=== PATIENT | female | born 1975 | race Caucasian/White ===

== ENCOUNTER → 2019-09-24 17:34 | Outpatient (CLI) | payer BC, SELFPAY ==
--- NOTE | ~2019-09-24 | MM_ITS ---
EXAMINATION: [place] [facility] [place] HISTORY: Screening mammogram TECHNIQUE: Craniocaudal and mediolateral oblique 3-D tomosynthesis images were obtained and synthetic 2-D images were generated. CAD analysis was submitted and interpreted. COMPARISON: 06/14/2015 BREAST PARENCHYMAL COMPOSITION: FINDINGS: There are benign bilateral skin calcifications. The right breast is stable without evidence for malignancy. There is a developing mass in the upper outer quadrant of the left breast measuring approximately 7 mm maximum dimension. IMPRESSION: 1. Developing mass upper outer quadrant of the left breast measuring approximately 7 mm. 2. Additional mammographic views and possible breast ultrasound are recommended. BI-RADS Category 0: Incomplete: Needs additional imaging evaluation. Reviewed, dictated and finalized at location A. IMPRESSION: 1. Developing mass upper outer quadrant of the left breast measuring approximat pedro 7 mm. 2. Additional mammographic views and possible breast ultrasound are recommended . BI-RADS Category 0: Incomplete: Needs additional imaging evaluation.
== END ==
PROVIDERS: Visit Provider Obstetrics & Gynecology
DX: Z12.31 Encounter for screening mammogram for malignant neoplasm of breast (principal); R92.8 Other abnormal and inconclusive findings on diagnostic imaging of breast
CPT/HCPCS: 77063; 77067

== ENCOUNTER 2019-10-11 07:43 | Outpatient (CLI) | payer BC, SELFPAY ==
--- NOTE | ~2019-10-11 | MMUS_ITS ---
EXAMINATION: MM diagnostic mammo unilat LT, US breast LT limited HISTORY: Left breast mass on screening mammogram TECHNIQUE: Additional 3-D tomosynthesis images of the left breast were performed and synthetic 2-D im ages were generated. CAD analysis was submitted and interpreted. High resolution limited left breast ultrasound was performed. COMPARISON: 09/24/2019, 06/14/2015 FINDINGS: MAMMOGRAPHIC FINDINGS: There is a 7 mm oval, obscured, equal density mass in the middle third of the breast at the 2:00 loca tion 2.5 cm from the nipple. No suspicious calcification or architectural distortion are present. ULTRASOUND: There is an 8 mm x 5 mm cyst at the 2:00 location 1 cm from the nipple corresponding to the mammograp hic finding in question. There is a 4 mm round, circumscribed, hypoechoic mass with no internal enhan cement and subtle posterior acoustic enhancement at the 12:00 location 0.5 cm from the nipple. A 3 mm mass with similar sonographic features is seen at the 3:00 location 3 cm from the nipple. IMPRESSION: 1. Left breast cyst corresponding to the finding in question on recent screening mammogram. Incidenta l small left breast masses seen on ultrasound are probably benign. 2. Recommend 6 month follow-up left diagnostic mammogram and ultrasound. BI-RADS category 3, probably benign findings. Reviewed, dictated and finalized at location A. IMPRESSION: 1. Left breast cyst corresponding to the finding in question on recent screenin g mammogram. Incidental small left breast masses seen on ultrasound are probabl y benign. 2. Recommend 6 month follow-up left diagnostic mammogram and ultrasound. BI-RADS category 3, probably benign findings.
== END 2019-10-11 07:44 ==
LOC: MICIMG 07:44
PROVIDERS: Visit Provider Obstetrics & Gynecology
DX: R92.8 Other abnormal and inconclusive findings on diagnostic imaging of breast (principal)
CPT/HCPCS: 76642; 77065

== ENCOUNTER → 2020-04-12 07:59 | Outpatient (CLI) | payer BC, SELFPAY ==
--- NOTE | ~2020-04-12 | MMUS_ITS ---
EXAMINATION: MM diagnostic nicholas LT w damaris, US breast LT limited HISTORY: Six-month follow-up for probably benign left breast masses TECHNIQUE: Craniocaudal, mediolateral, and mediolateral oblique 3-D tomosynthesis images of the left breast were performed and synthetic 2-D images were generated. CAD analysis was submitted and interpr eted. High resolution limited left breast ultrasound was performed. COMPARISON: 09/14/2019, 09/24/2019, 06/14/2015 BREAST PARENCHYMAL COMPOSITION: The breasts are heterogeneously dense, which may obscure small masses . FINDINGS: MAMMOGRAPHIC FINDINGS: Scattered benign-appearing calcifications are present. No suspicious mass or architectural distortion are identified. There has been no suspicious interval change. ULTRASOUND: There is a 4 mm x 2 mm oval, circumscribed, parallel, hypoechoic mass with no posterior features or i nternal vascularity at the 12:00 location near the nipple which is not significantly changed. A 4 mm x 3 mm mass with similar sonographic features at the 3:00 location 3 cm from the nipple is also not s ignificantly changed. A 7 mm cyst at the 2:00 1:00 location near the nipple is slightly decreased in size. IMPRESSION: 1. Probably benign left breast masses. 2. Recommend 6 month follow-up left diagnostic mammogram and ultrasound. BI-RADS category 3, probably benign findings. Reviewed, dictated and finalized at location A. IMPRESSION: 1. Probably benign left breast masses. 2. Recommend 6 month follow-up left diagnostic mammogram and ultrasound. BI-RADS category 3, probably benign findings.
== END ==
PROVIDERS: Referring Provider Obstetrics & Gynecology; Visit Provider Obstetrics & Gynecology Gynecology
DX: R92.8 Other abnormal and inconclusive findings on diagnostic imaging of breast (principal)
CPT/HCPCS: 76642; 77061; 77065; G0279

== ENCOUNTER 2020-04-28 09:49 | Outpatient (CLI) | payer BC, SELFPAY ==
--- NOTE | 2020-04-28 09:59 | EST_ITS ---
Patient Info Name: Tanisha Ag Age: 44 years : 1975 Gender: Female Ht: 64 in Wt: 135 lbs BSA: 1.67 m2 Exam Date: 04/28/2020 10:18 AM Exam Location: [facility] Patient Status: Outpatient Admit Date: 04/28/2020 Staff Ordering Physician: Monique Gu MD Deicer Repairer Electric: Ken Urena RDCS, RT Attending Provider: JARAD MARTINEZ DO Referring Physician: Brittanie DENTON; Exercise Technologist: Holly Delgado RDCS Exercise Physician: Jarad Martinez DO Exam Type: CA stress echo Study Info Indications R07.9 - Chest pain, unspecified Treadmill exercise stress echocardiogram is performed. Summary 1. 1. Abnormal Daniel exercise stress test for ischemic ST changes by ECG criteria. 2. 2. Reduced functional capacity, achieving 7 METs of workload, but this is due to early termination related to significant ST depressions. 3. 3. Appropriate HR response to exercise. 4. 4. Appropriate HR recovery at 1 minute post exercise. 5. 5. Abnormal stress echocardiogram for ischemia by wall motion analysis suggesting coronary stenosis in LAD distribution. 6. 6. Patient informed about the above results. 7. 7. Adalid Martinez NP, informed of the above results in Dr. Monique Gu's absence. Stress Echo Findings Left Ventricle In apical views, apex is akinetic. In parasternal short axis view, anterior wall is hypokinetic. Other wall segments appear to demonstrate normal thickening with systole. Left Ventricle Normal LV systolic function, no wall motion abnormality. Protocol: Daniel Stress ECG Details Stage: REST Duration (min): 1 min : 46 sec Speed (mph): 0.0 Grade (%): 0 HR (bpm): 69 SBP (mmHg): 135 DBP (mmHg): 69 METS: --- Stage: REST Duration (min): 15 min : 16 sec Speed (mph): 0.0 Grade (%): 0 HR (bpm): 101 SBP (mmHg): 135 DBP (mmHg): 69 METS: --- Stage: STAGE 1 Duration (min): 1 min : 0 sec Speed (mph): 1.7 Grade (%): 10 HR (bpm): 107 SBP (mmHg): 135 DBP (mmHg): 69 METS: --- Stage: STAGE 1 Duration (min): 2 min : 0 sec Speed (mph): 1.7 Grade (%): 10 HR (bpm): 127 SBP (mmHg): 135 DBP (mmHg): 69 METS: --- Stage: STAGE 1 Duration (min): 3 min : 0 sec Speed (mph): 1.7 Grade (%): 10 HR (bpm): 126 SBP (mmHg): 135 DBP (mmHg): 73 METS: --- Stage: STAGE 2 Duration (min): 1 min : 0 sec Speed (mph): 2.5 Grade (%): 12 HR (bpm): 139 SBP (mmHg): 135 DBP (mmHg): 73 METS: --- Stage: STAGE 2 Duration (min): 2 min : 0 sec Speed (mph): 2.5 Grade (%): 12 HR (bpm): 154 SBP (mmHg): 137 DBP (mmHg): 77 METS: --- Stage: STAGE 2 Duration (min): 3 min : 0 sec Speed (mph): 2.5 Grade (%): 12 HR (bpm): 164 SBP (mmHg): 137 DBP (mmHg): 77 METS: --- Stage: STAGE 3 Duration (min): 1 min : 0 sec Speed (mph): 0.0 Grade (%): 0 HR (bpm): 124 SBP (mmHg): 125 DBP (mmHg): 76 METS: --- Stage: STAGE 3 Duration (min): 2 min :
== END 2020-04-28 09:50 | disposition home or self-care (01) ==
PROVIDERS: PCP Family Medicine; Visit Provider Family Medicine
DX: R07.89 Other chest pain (principal)
CPT/HCPCS: 93351

== ENCOUNTER 2020-05-10 01:45 | Outpatient (CLI) | payer BC, SELFPAY ==
[2020-05-10 18:18] LABS: SARS-CoV-2 RNA PCR Negative
== END 2020-05-10 01:46 | disposition home or self-care (01) ==
LOC: ANHCOVIDDT 01:45
PROVIDERS: PCP Family Medicine; Visit Provider Specialist
DX: Z01.812 Encounter for preprocedural laboratory examination (principal); Z20.828 Contact with and (suspected) exposure to other viral communicable diseases
CPT/HCPCS: 87635; C9803; U0003

== ENCOUNTER 2020-05-30 03:02 | Outpatient (CLI) | payer BC, SELFPAY ==
[2020-05-30 19:46] LABS: SARS-CoV-2 RNA PCR Negative
== END 2020-05-30 03:03 | disposition home or self-care (01) ==
LOC: ANHCOVIDDT 03:03
PROVIDERS: PCP Family Medicine; Visit Provider Specialist
DX: Z20.828 Contact with and (suspected) exposure to other viral communicable diseases (principal)
CPT/HCPCS: 87635; C9803; U0003

== ENCOUNTER 2020-06-02 04:36 | Day surgery (SDC) | payer BC, SELFPAY ==
[2020-05-11 16:12] VITALS: BMI 22.3
[2020-06-01 12:50] VITALS: BMI 22.3
[2020-06-02] VITALS (9 sets, daily range): BP systolic 106–123; BP diastolic 63–78; PULSE 67–86; RESP 14–17; TEMP 36.8–37.5; O2SAT 97–100; BMI 22.4
--- NOTE | 2020-06-02 08:40 | SUR.PREOP ---
ARRIVES AMBULATORY TO [facility] FOR SCHEDULED LHC W/ DR. CATHERINE. STEADY GAIT, A&OX4, DENIES PAIN OR SOB. ORIENTED TO ROOM, PLAN OF CARE, PROCEDURE. QUESTIONS ANSWERED. IV STARTED, LABS SENT, VS OBTAINED, SKIN PREP COMPLETED, PULSES MARKED, CONSENT SIGNED. WILL CONTINUE TO MONITOR.
[2020-06-02 09:07] LABS: Basophils Percent Auto 0.7 % (0.2-1.2); Eosinophils Absolute Auto 0.1 K/mm3 (0-0.3); Eosinophils Percent Auto 1.7 % (0-4.4); Hematocrit 39.8 % (37.0-47.0); Immature Granulocyte Absolute 0.02 K/mm3 (0.00-0.031); Immature Granulocyte Percent A 0.3 % (0-0.5); Lymphocytes Absolute Auto 1.59 K/mm3 (0.9-3.2); Lymphocytes Percent Auto 27.7 % (18.3-44.2); Mean Corpuscular HGB Conc 35.2 g/dl (32-36); Mean Corpuscular Hemoglobin 32.1 pg (26-34); Mean Corpuscular Volume 91.3 fl (80-100); Mean Platelet Volume 9.3 fl (7.4-10.4); Monocytes Absolute Auto 0.4 K/mm3 (0.1-0.6); Monocytes Percent Auto 6.6 % (2.6-8.5); Neutrophils Absolute Auto 3.6 K/mm3 (1.3-6.7); Platelet Count Result 259 k/mm3 (150-375); Red Blood Count 4.36 M/mm3 (4.2-5.4); Red Cell Distribution Width 11.2 % (11.5-14.5); White Blood Count 5.8 K/mm3 (4.5-10.0)
[2020-06-02 09:16] LABS: INR 0.9; Prothrombin Time 12.6 Seconds (11.1-14.7)
[2020-06-02 09:20] LABS: Anion Gap 7 mmol/L (8-16); Blood Urea Nitrogen 9 mg/dL (7-17); Calcium 9.4 mg/dL (8.4-10.2); Carbon Dioxide 30 mmol/L (22-30); Chloride 102 mmol/L (98-107); Estimated CRCL calculation 90 ml/min; Estimated Glomerular Filt Rate > 60; Glucose 96 mg/dL (65-105); Potassium 3.7 mmol/L (3.4-5.0); Sodium 139 mmol/L (137-145)
--- NOTE | 2020-06-02 11:01 | WPDMODSED ---
Moderate Sedation Note-Pt Data Patient Data Diagnosis: Intermittent chest pain abnormal stress echocardiogram Present Complaint: this is a hypertensive 44-year-old woman who presented to her physician with intermittent episodes of chest pain. A stress echocardiogram was reported to be significantly abnormal with ST depression and apical wall motion abnormalities. As a result of this angiography has been recommended. Procedure to be performed/Plan: Left heart catheterization Allergies Allergy/AdvReac Type Severity Reaction Status Date / Time bupropion [From Wellbutrin] Allergy Severe Hives Verified 06/02/20 09:08 Penicillins Allergy Severe Hives Verified 06/02/20 09:08 Cephalosporins Allergy Intermediate Blister Verified 06/02/20 09:08 Home Medications Medication Instructions Recorded Confirmed Type aspirin 81 mg chewable tablet 81 mg PO DAILY #30 tablet 04/12/20 06/01/20 Rx cholecalciferol (vitamin D3) 50 50 mcg PO DAILY 05/01/20 06/01/20 History mcg (2,000 unit) capsule magnesium oxide 400 mg PO DAILY 05/01/20 05/25/20 History pravastatin 10 mg tablet 10 mg PO DAILY #30 tablet 05/01/20 06/01/20 Rx vit B complex 100 combo no.2 100 1 tablet PO DAILY 05/01/20 06/01/20 History mg tablet,extended release buspirone 5 mg PO TID 06/01/20 06/02/20 History Current Medications: Active Medications Sodium Chloride (Normal Saline Iv) 500 mls @ 100 mls/hr IV CONT .Q5H DIAMOND Sedation/Anesthesia: No previous sedation/anesthesia problems (including family history). [facility] Past Medical History Medical History (Updated 05/01/20 @ 10:48 by Claudio Meadows DO) Carpal tunnel syndrome on both sides Dyskinesia of esophagus Nasal polyps Nicotine dependence, unspecified, in remission Palpitations 2005: holter neg/ echo normal Surgical History Surgical History Hx of tubal ligation S/P appendectomy (~2003) Family History Family History Mother Hypertension Father Family history of cardiovascular disease Family history of malignant neoplasm of skin Other Family history of skin conditions Social History Social History Tobacco type: cigarettes Second hand tobacco smoke exposure: No Smoking end date: 07/14/01 Substance use: never Living arrangements: with family Gender identity (if verbalized by the patient): Female Sexual Orientation (if Verbalized by the Patient): Straight or Heterosexual Spiritual care concerns: No Mod Sed Physical Exam Physical Exam Pre Procedural Exam: Normal: Appearance, Nose, Neck, Throat, Airway, Lungs, Heart Size, Heart Rate, Heart Rhythm, Neuro Exam and Extremities Hours since solid foods: 12 Hours since liquid intake: 12 Internal Medicine - PN: Obj Da Vital Signs Vital Signs: Vital Signs - 24 hr 06/02/20 08:55 Temperature 37.5 C Pulse Rate 86 Respiratory Rate 14 Blood Pressure 123/73 Pulse Oximetry 100 Meds/Results Medications: Active Medications Generic Name Dose Route Start Last Admin Trade Name Freq PRN Reason Stop Dose Admin Sodium Chloride 500 mls @ 100 mls/hr 06/02/20 06:20 Normal Saline Iv IV CONT .Q5H DIAMOND Labs CBC & Chem 7: 06/02/20 08:55 06/02/20 08:55 Labs: Laboratory Results - last 24 hr 06/02/20 06/02/20 06/02/20 08:55 08:55 08:55 WBC 5.8 RBC 4.36 Hgb 14.0 Hct 39.8 MCV 91.3 MCH 32.1 MCHC 35.2 RDW 11.2 L Plt Count 259 MPV 9.3 Immature Gran % (Auto) 0.3 Neut % (Auto) 63.0 Lymph % (Auto) 27.7 Gem % (Auto) 6.6 Eos % (Auto) 1.7 Baso % (Auto) 0.7 Lymph # (Auto) 1.59 Gem # (Auto) 0.4 Eos # (Auto) 0.1 Baso # (Auto) 0.0 Abs Immat Gran (auto) 0.02 Absolute Neuts (auto) 3.6 Absolute Nucleated RBC 0.0 Nucleated RBC % 0.0 PT 12.6 INR 0.9 Sodium 1
--- NOTE | 2020-06-02 11:36 | P.PCNCC_ITS ---
Cardiac Cath Procedure Note Date of procedure:: 06/02/20 Performing physician:: Keith Luciano MD Indication:: intermittent chest pain abnormal stress test Brief clinical history:: this is 44-year-old woman with intermittent chest pain that is somewhat atypical of angina. A stress test that was on as an outpatient however was significantly abnormal leading to the recommendation for an angiogram Procedure Procedure performed:: left heart catheterization with left ventriculography and coronary angiography Angio-Seal to right femoral artery Sedation/Medication given:: fentanyl 50 mg Versed 2 mg case start time 11:18 a.m. case end time 11:33 a.m. sedation provided by Aidan Ball RN , trained observer Access site:: right femoral artery Estimated blood loss:: 10-15 cc Procedure note:: patient was brought to the cardiac catheterization lab in postabsorptive state the right femoral triangle was prepared in the usual f ashion. Anesthesia was provided with 1% lidocaine infiltrated locally. Using the modified Seldinger technique the right femoral artery was punctured and a 5 Marshallese vascular sheath was introduced. Following this I used a 5 Marshallese angled pigtail catheter to document left-sided hemodynamics and inject the g ORTEGA projection. Pigtail catheter was then withdrawn and a 5 Marshallese FL4 catheter was used to engage inject the left coronary artery. The 5 Marshallese JR4 catheter was used to engage inject the right coronary artery. Following procedure the cineangiograms were reviewed and the case was terminated and angiogram was done of the femoral artery through the sheath and a 6 Marshallese Angio-Seal device was deployed for hemostasis with a good result. 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 Findings:: Hemodynamics: Central aortic pressure is 108/56 left ventricle 108 over 0 end-diastolic 8 there is no systolic gradient 5 pullback across the aortic valve. Left ventricle: The LV is of normal size all segments contract vigorously the global ejection fraction appears to be 65% by visual estimation without any wall motion abnormalities. The left main coronary artery is a long medium in caliber nicely patent the LAD is a medium caliber artery proximally and becomes very small down by the apex the LAD is angiographically free of disease the circumflex is very small artery leading to 2 small marginal branches. Despite being small in size it is angiographically normal right coronary artery is medium in size and is dominant to the posterior circulation the right coronary artery is angiographically normal. Conclusion:: 1. Right coronary dominant circulation with no angiographic evidence of coronary disease 2. angiographically small caliber vessels in this lady 3. normal left ventricular systolic function without wall motion abnormalities 4. successful Angio-Seal deployment at the end case with no evidence of hematoma Keith Luciano MD [facility]
[2020-06-02] MEDS: ONDANSETRON INJ 4 MG/2 ML VIAL IV PUSH (12:46)
== END 2020-06-02 15:20 | disposition home or self-care (01) ==
PROVIDERS: PCP Family Medicine; Visit Provider Specialist
PROC: 4A023N7 Measurement of Cardiac Sampling and Pressure, Left Heart, Percutaneous Approach (ICD-10-PCS; CPT 93452; principal; 2020-06-02 10:00)
DX: R94.39 Abnormal result of other cardiovascular function study (principal); R07.89 Other chest pain; Z79.82 Long term (current) use of aspirin; Z87.891 Personal history of nicotine dependence
CPT/HCPCS: 36415; 80048; 85025; 85610; 93458; C1760; C1887; C1894; G0269; J1644; J2250; J2405; J3010; J7040

== ENCOUNTER 2020-09-21 08:18 | Outpatient (CLI) | payer BC, SELFPAY | END 2020-09-21 08:19 | disposition home or self-care (01) | LOC: ANHCOVIDVC 08:18 | PROVIDERS: PCP Family Medicine | DX: Z23 Encounter for immunization (principal) | CPT/HCPCS: 0001A; 91300 ==

== ENCOUNTER → 2020-10-10 07:49 | Outpatient (CLI) | payer BC, SELFPAY ==
--- NOTE | ~2020-10-10 | MMUS_ITS ---
EXAMINATION: MM diagnostic nicholas BI w damaris, US breast LT limited HISTORY: Six-month follow-up for probably benign left breast mass TECHNIQUE: Craniocaudal, mediolateral, and mediolateral oblique 3-D tomosynthesis images of the meir ts were performed and synthetic 2-D images were generated. CAD analysis was submitted and interpreted . High resolution limited left breast ultrasound was performed. COMPARISON: 04/12/2020, 10/11/2019, 09/24/2019, 06/14/2015 BREAST PARENCHYMAL COMPOSITION: There are scattered areas of fibroglandular density. FINDINGS: MAMMOGRAPHIC FINDINGS: Scattered benign-appearing calcifications are present. There is no evidence of suspicious mass, calci fication, or architectural distortion in either breast to suggest malignancy. There has been no susp icious interval change. ULTRASOUND: There is a stable 4 mm x 2 mm oval, circumscribed, parallel, hypoechoic mass with no posterior featur es or internal vascularity at the 3:00 location 3 cm from the nipple. The previously described 4 mm m ass at the 12:00 location near the nipple has decreased in size. There is a 6 mm cyst at the 1:00 loc ation near the nipple. IMPRESSION: 1. Stable, probably benign left breast mass at the 3:00 location. 2. Given one year of interval stability, recommend 12 month followup left diagnostic mammogram and ul trasound are recommended. Patient will also be due for evaluation of the right breast at that time. BI-RADS category 3, probably benign findings. Reviewed, dictated and finalized at location A. IMPRESSION: 1. Stable, probably benign left breast mass at the 3:00 location. 2. Given one year of interval stability, recommend 12 month followup left diagn ostic mammogram and ultrasound are recommended. Patient will also be due for ev aluation of the right breast at that time. BI-RADS category 3, probably benign findings.
== END ==
PROVIDERS: PCP Family Medicine; Visit Provider Obstetrics & Gynecology Gynecology
DX: N63.25 Unspecified lump in the left breast, overlapping quadrants (principal); N60.02 Solitary cyst of left breast
CPT/HCPCS: 76642; 77062; 77066; G0279

== ENCOUNTER 2020-10-12 08:13 | Outpatient (CLI) | payer BC, SELFPAY | END 2020-10-12 08:14 | disposition home or self-care (01) | LOC: ANHCOVIDVC 08:13 | PROVIDERS: PCP Family Medicine | DX: Z23 Encounter for immunization (principal) | CPT/HCPCS: 0002A; 91300 ==

== ENCOUNTER 2021-03-22 07:36 | Outpatient (CLI) | payer BC, SELFPAY ==
--- NOTE | ~2021-03-22 | MR_ITS ---
EXAMINATION: MR cervical spine wo/w con DATE: 03/22/2021 09:13 INDICATION: Other disturbances of skin sensation. TECHNIQUE: Magnetic resonance imaging (MRI) of the cervical spine was performed without and with 12 m L MultiHance intravenous contrast. Sequences included sagittal and axial T2-weighted FSE, sagittal T2 -weighted FS FSE, and sagittal and axial T1-weighted FSE. Postcontrast sequences included sagittal an d axial T1-weighted FS FSE. COMPARISON: None FINDINGS: Bone alignment is normal. Vertebral body heights are normal. Intervertebral disc heights ar e normal. The spinal cord signal intensity is normal. The following disc levels are specifically disc ussed: C2-C3: The disc does not extend beyond the endplate margin. There is no uncovertebral joint osteoarth ritis. There is no facet joint osteoarthritis. There is no neural foraminal stenosis. There is no sydney tral canal stenosis. C3-C4: The disc does not extend beyond the endplate margin. There is no uncovertebral joint osteoarth ritis. There is no facet joint osteoarthritis. There is no neural foraminal stenosis. There is no sydney tral canal stenosis. C4-C5: The disc does not extend beyond the endplate margin. There is no uncovertebral joint osteoarth ritis. There is no facet joint osteoarthritis. There is no neural foraminal stenosis. There is no sydney tral canal stenosis. C5-C6: There is a central protrusion with annular fissure. There is no uncovertebral joint osteoarthr itis. There is no facet joint osteoarthritis. There is no neural foraminal stenosis. There is mild ce ntral canal stenosis. C6-C7: There is a central protrusion. There is no uncovertebral joint osteoarthritis. There is no fac et joint osteoarthritis. There is no neural foraminal stenosis. There is mild central canal stenosis. C7-T1: The disc does not extend beyond the endplate margin. There is no uncovertebral joint osteoarth ritis. There is no facet joint osteoarthritis. There is no neural foraminal stenosis. There is no sydney tral canal stenosis. IMPRESSION: 1. Normal spinal cord. 2. Mild cervical spondylosis. Reviewed, dictated and finalized at location A.
--- NOTE | ~2021-03-22 | MR_ITS ---
EXAMINATION: MR brain/brain stem wo con DATE: 03/22/2021 09:04 INDICATION: Other disturbances of skin sensation. TECHNIQUE: Magnetic resonance imaging (MRI) of the brain and brainstem was performed without intraven ous contrast. Sequences included sagittal and axial T1-weighted FSE, axial diffusion-weighted FS EPI, axial T2*-weighted GRE, axial T2-weighted FLAIR Propeller, and axial T2-weighted Propeller. Apparent diffusion coefficient (ADC) maps were created. COMPARISON: None. FINDINGS: There is no intracranial hemorrhage, acute infarction, or abnormal intracranial mass lesion . The ventricles are normal in size. There are mucous retention cysts in left maxillary sinus. There is mild mucosal thickening in the paranasal sinuses. The orbits are normal. The mastoid air cells are normal. IMPRESSION: 1. Normal brain. Reviewed, dictated and finalized at location A. IMPRESSION: 1. Normal brain.
[2021-03-22 08:20] LABS: Estimated Glomerular Filt Rate > 60
== END 2021-03-22 07:37 | disposition home or self-care (01) ==
PROVIDERS: PCP Family Medicine; Visit Provider Family Medicine
DX: R20.8 Other disturbances of skin sensation (principal); R29.898 Other symptoms and signs involving the musculoskeletal system; R20.9 Unspecified disturbances of skin sensation; M47.813 Spondylosis without myelopathy or radiculopathy, cervicothoracic region; M48.03 Spinal stenosis, cervicothoracic region
CPT/HCPCS: 70551; 72156; A9577

== ENCOUNTER → 2021-08-13 07:42 | Outpatient (CLI) | payer BC, SELFPAY ==
--- NOTE | ~2021-08-13 | US_ITS ---
EXAMINATION: US abdomen limited DATE: 08/13/2021 08:32 INDICATION: Right upper quadrant pain TECHNIQUE: Multiple grayscale and Doppler ultrasound images of the abdomen were obtained. COMPARISON: 10/14/2013; CT, 04/19/2016 FINDINGS: The head and body of the pancreas are normal. The pancreatic tail is obscured by bowel gas. Cysts of the liver measure up to 2.3 cm. The liver is otherwise normal with normal echogenicity and echotexture. No surface nodularity. Normal hepatopetal flow in the main portal vein. The gallbladder is normal with no abnormal wall thickening, pericholecystic fluid or stones. The normal common bile d uct measures 3 mm. There was no sonographic Urena sign. IMPRESSION: 1. Normal sonographic study of the gallbladder. Reviewed, dictated and finalized at location B. ET SAWYER
== END ==
PROVIDERS: PCP Family Medicine; Visit Provider Family Medicine
DX: R10.11 Right upper quadrant pain (principal); K76.89 Other specified diseases of liver
CPT/HCPCS: 76705

== ENCOUNTER 2021-08-29 11:34 | Outpatient (CLI) | payer BC, SELFPAY ==
--- NOTE | ~2021-08-29 | NM_ITS ---
EXAMINATION: NM hepatobiliary wo pharm DATE: 08/29/2021 18:12 INDICATION: Right upper quadrant abdominal pain COMPARISON: None. TECHNIQUE: 4.8 mCi Tc-99m mebrofenin (Choletec) was administered intravenously. Scintigraphic images of the abdomen were obtained for one hour. At the 1 hour time point, the patient drank 8 oz Ensure, and imaging was continued for 60 minutes. Gallbladder ejection fraction was calculated by the technol ogist. FINDINGS: There is normal clearance of radiotracer from the blood pool. There is homogeneous tracer u ptake by the liver. Activity progresses to the bowel and gallbladder. The gallbladder ejection fract ion (GBEF) is 63%. Note that with this technique, normal GBEF >= 33%. IMPRESSION: 1. Normal hepatobiliary scan. Reviewed, dictated and finalized at location A. 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
== END 2021-08-29 11:35 | disposition home or self-care (01) ==
PROVIDERS: PCP Family Medicine; Visit Provider Family Medicine
DX: R10.9 Unspecified abdominal pain (principal)
CPT/HCPCS: 78226; A9537

== ENCOUNTER → 2021-10-11 07:47 | Outpatient (CLI) | payer BC, SELFPAY ==
--- NOTE | ~2021-10-11 | MMUS_ITS ---
EXAMINATION: MM diagnostic nicholas BI w damaris, US breast LT limited HISTORY: 12 month follow-up for probably benign left breast mass TECHNIQUE: Craniocaudal, mediolateral, and mediolateral oblique 3-D tomosynthesis images of the left breast were performed and synthetic 2-D images were generated. CAD analysis was submitted and interpr eted. High resolution limited left breast ultrasound was performed. COMPARISON: 10/10/2020, 04/12/2020, 10/11/2019, 09/24/2019 BREAST PARENCHYMAL COMPOSITION: There are scattered areas of fibroglandular density. FINDINGS: MAMMOGRAPHIC FINDINGS: Scattered benign-appearing calcifications are present. There is no suspicious mass, calcification, or architectural distortion in either breast to suggest malignancy. There has been no suspicious inter vida change. ULTRASOUND: There is a stable 4 mm x 2 mm oval, circumscribed, parallel, hypoechoic mass with no posterior featur es or internal vascularity at the 3:00 location 3 cm from the nipple. A cyst is noted at the 1:00 loc ation near the nipple. A 2 mm hypoechoic mass at the 12:00 location near the nipple continues to decr ease in size, consistent with a benign finding. IMPRESSION: 1. Left breast mass with two years of interval stability, consistent with a benign finding. 2. Recommend routine screening mammography in one year. BI-RADS Category 2: Benign finding(s). Reviewed, dictated and finalized at location A. IMPRESSION: 1. Left breast mass with two years of interval stability, consistent with a aryan ign finding. 2. Recommend routine screening mammography in one year. BI-RADS Category 2: Benign finding(s).
== END ==
PROVIDERS: PCP Family Medicine; Visit Provider Obstetrics & Gynecology Gynecology
DX: R92.8 Other abnormal and inconclusive findings on diagnostic imaging of breast (principal); N60.02 Solitary cyst of left breast; N63.25 Unspecified lump in the left breast, overlapping quadrants
CPT/HCPCS: 76642; 77062; 77066; G0279

== ENCOUNTER 2022-05-25 08:09 | Emergency (ER) | payer BC, SELFPAY ==
[2022-05-25] VITALS (38 sets, daily range): BP systolic 107–135; BP diastolic 62–104; PULSE 74–110; RESP 11–23; TEMP 36.3–36.8; O2SAT 97–100
--- NOTE | ~2022-05-25 | XR_ITS ---
EXAMINATION: XR ankle LT min 3V DATE: 05/25/2022 09:13 INDICATION: Post reduction TECHNIQUE: Anteroposterior, lateral, mortise, and additional oblique view of the ankle were obtained. COMPARISON: 0826 hours FINDINGS: The previously described trimalleolar fracture/dislocation has been reduced. Alignment is n ear-anatomic. The distal fibular fracture fragment remains posteriorly displaced approximately 3 mm. A posterior splint has been applied. No additional fracture is identified. IMPRESSION: 1. Reduced trimalleolar fracture/dislocation in near-anatomic alignment. Posterior splint applied. Reviewed, dictated and finalized at location A. E PAPER HAMMERMILL OPERATOR IMPRESSION: 1. Reduced trimalleolar fracture/dislocation in near-anatomic alignment. Professor Of Mechanical Engineering ior splint applied.
--- NOTE | ~2022-05-25 | XR_ITS ---
EXAMINATION: XR ankle LT min 3V DATE: 05/25/2022 09:40 INDICATION: Splint exchange TECHNIQUE: Anteroposterior, lateral, mortise, and additional oblique view of the ankle were obtained. COMPARISON: 0909 hours FINDINGS: Again seen is a trimalleolar fracture of the left ankle in near-anatomic alignment. A poste rior splint is in place. No significant change in alignment is identified. IMPRESSION: 1. Trimalleolar fracture of the left ankle in near-anatomic alignment Reviewed, dictated and finalized at location A. GRATION SOLUTION ARCHITECT
--- NOTE | ~2022-05-25 | XR_ITS ---
EXAMINATION: XR ankle LT min 3V DATE: 05/25/2022 08:29 INDICATION: Left ankle pain and deformity TECHNIQUE: Anteroposterior, lateral, mortise, and additional oblique view of the ankle were obtained. COMPARISON: None. FINDINGS: There are medial and posterior malleolar fractures. There is an oblique fracture of the dis lizette fibula extending to the level of the tibial plafond. There is posterior and lateral subluxation o f the talus relative to the distal tibia. Ankle soft tissue swelling is present. No additional fractu re is identified. IMPRESSION: 1. Trimalleolar fracture/dislocation of ankle. Reviewed, dictated and finalized at location A. ARCH TECHNOLOGIST
--- NOTE | 2022-05-25 08:32 | ED.LOWEXIN ---
HPI - Extremity Injury (Lower) General Chief Complaint: Extremity Injury, Lower Stated Complaint: L ANKLE DEFORMITY History of Present Illness HPI Narrative: Patient is a 46-year-old female who presents ER with left ankle deformity. Her cat got beneath her feet causing her to trip and fall earlier today. She suffered sudden onset pain to the left ankle. No numbness or tingling. Pulses intact. She did not lose consciousness. No areas of injury. Cannot ambulate due to pain and deformity. Related Data Home Medications Medication Instructions Recorded Confirmed cholecalciferol (vitamin D3) 50 50 mcg PO DAILY 05/01/20 01/09/22 mcg (2,000 unit) capsule magnesium oxide 400 mg PO DAILY 05/01/20 01/09/22 vit B complex 100 combo no.2 100 1 tablet PO DAILY 05/01/20 01/09/22 mg tablet,extended release (B-100 Complex ER) Allergies Allergy/AdvReac Type Severity Reaction Status Date / Time bupropion [From Wellbutrin] Allergy Severe Hives Verified 05/09/22 15:31 Penicillins Allergy Severe Hives Verified 05/09/22 15:31 Cephalosporins Allergy Intermediate Blister Verified 05/09/22 15:31 Review of Systems Review of Systems: All systems reviewed & are unremarkable except as noted in HPI and below Constitutional: Constitutional: Denies chills, Denies fatigue and Denies fever(s) Gastrointestinal: Gastrointestinal: Denies nausea and Denies vomiting Musculoskeletal: Musculoskeletal: Denies back pain, Reports arthralgias, Reports joint swelling and Denies muscle cramps Neurologic: Denies syncope, Denies focal weakness and Denies numbness PMFSH Past Medical History Medical History Abnormal stress echo cardiac cath negative Atypical chest pain cardiac cath neg Carpal tunnel syndrome on both sides Dyskinesia of esophagus Liver cyst Nasal polyps Nicotine dependence, unspecified, in remission Palpitations 2004: holter neg/ echo normal Surgical History Surgical History History of cardiac cath 06.02.20: negative Conclusion:: 1. Right coronary dominant circulation with no angiographic evidence of coronary disease 2. angiographically small caliber vessels in this lady 3. normal left ventricular systolic function without wall motion abnormalities 4. successful Angio-Seal deployment at the end case with no evidence of hematoma Hx of tubal ligation S/P appendectomy (~2003) Family History Family History Mother Hypertension Father Family history of cardiovascular disease Family history of malignant neoplasm of skin Other Family history of skin conditions Social History Social History Smoking status: Former smoker Tobacco type: cigarettes Second hand tobacco smoke exposure: No Smoking end date: 07/14/01 Alcohol intake: current Drinks per week: 2 Substance use: never Gender identity (if verbalized by the patient): Female Sexual Orientation (if Verbalized by the Patient): Straight or Heterosexual Spiritual care concerns: No Exam Narrative: GENERAL: Well-appearing, well-nourished, and in no acute distress. HEAD: Normocephalic, atraumatic. EYES: PERRL and EOMI. ENT: Mucous membranes moist. Normal-appearing posterior oropharynx. CHEST: Clear to auscultation. No respiratory distress. HEART: Regular rate and rhythm. Normal peripheral pulses. ABDOMEN: Soft, nontender, nondistended. EXTREMITIES: Deformity left ankle with tenderness. Appears to be posterior dislocation. Normal dorsalis pedis pulses and sensation. Unremarkable upper extremities or right lower extremity. SKIN: Warm, dry, no rash. NEURO: No focal deficits. Alert and oriented x3. Course Course Emergency Course: Joint reduced. Discussed with orthopedic surgery santos
[2022-05-25] MEDS: SODIUM CHLORIDE 0.9% IV 1,000 ML 999 ML IV CONT (08:43)
[2022-05-25] MEDS: MORPHINE SULFATE (*CRX) 4 MG/ML INJ IV PUSH (08:43)
--- NOTE | 2022-05-25 09:46 | PC.NURSE ---
40 MG OF PROPOFOL WAS ADMINISTERED BY DR. ROACH AT 0900. ANOTHER 20MG AT 0902. ALL APPROPRIATE EQUIPMENT SET UP AT BEDSIDE TO INCLUDE OXYGEN AND CAPNOGRAPHY, IV FLUIDS AT BOLUS RATE, SUCTION, BVM, AND CRASH CART.
== END 2022-05-25 11:20 | disposition home or self-care (01) ==
PROVIDERS: Emergency Provider Emergency Medicine; PCP Family Medicine
DX: S82.852A Displaced trimalleolar fracture of left lower leg, initial encounter for closed fracture (principal); Z87.891 Personal history of nicotine dependence; W01.0XXA Fall on same level from slipping, tripping and stumbling without subsequent striking against object, initial encounter
CPT/HCPCS: 27818; 73610; 96374; 99285; J2270; J7030

== ENCOUNTER 2022-05-30 01:07 | Day surgery (SDC) | payer BC, SELFPAY ==
[2022-05-28 11:38] VITALS: BMI 22.8
--- NOTE | 2022-05-28 11:46 | PC.NURSE ---
Report to the Outpatient Waiting Room, entrance under the green pavilion located off [facility], at time 1200 on date 05/30/22. Planned Procedure Time: 1400. Time changes happen often and if your time is changed the preop area will call you the afternoon before. - You and your visitor will be asked to self-screen and do not enter if you have any COVID symptoms. - We encourage only one visitor and NO visitors under age 16 are allowed at this time. Your visitor will receive communication by the phone number that is given day of service. - The patient visitor is requested to social distance or may leave the building when not with patient due to restrictions. - A mask is OPTIONAL within the hospital. Patients may have clear liquids (water, carbonated beverages, clear teas, apple juice) until 3 hours prior to surgery with a maximum of 20 ounces. - No food from midnight until time of surgery Take the following medications with a SIP of water the morning of surgery: NONE Medications to discontinue per physician: VITAMINS/SUPPLEMENTS Date to take last dose: NO MORE UNTIL AFTER SURGERY Please no make-up, nail macedonian, hairspray, perfume, deodorant, or body powder the day of surgery. No jewelry (including any body piercings) or valuables the day of surgery, leave them at home. Please take a shower or bath the night before, or the morning of, surgery with an antibacterial soap. Wear comfortable, loose fitting clothing. - Jewelry must be removed prior to entering the operating room. Rings and piercings that are not removed may be cut off. - The hospital will not accept responsibility for valuables. - Please leave all valuables, including medications, at home the day of surgery. If you are going home after surgery, a licensed tower truck driver must drive you home. - NO public transportation without another adult. - We recommend that an adult stay with you for 24 hours following discharge. - We also recommend that you do not drive, make important decision, drink alcoholic beverages, or take any drugs that were not prescribed by your health care provider for at least 24 hours after your discharge time. Follow any additional instructions given to you from your surgeon. If you or anyone in your household have experienced Covid symptoms in the past week, please notify your surgeon or the nurse liaison at the phone number below for possible testing. Telephone instructions given to PT - ILIANA JOHNSTON and asked if any additional questions and then verbalized understanding. Patient advised to call surgeon office or pre surgery nurse liaison [phone] if any additional questions.
--- NOTE | 2022-05-29 13:26 | WPDANESEPPF ---
Anes - Initial Pre Proc Eval Procedure: Operation Date: 05/30/22 14:00 Proposed Procedures p Open Reduction Internal Fixation Left Ankle Fracture - Braulio Lutz MD Date/Time: 05/29/22 13:26 Surgeon: Braulio Lutz MD Pre Op Diagnosis: Lt Trimalleolar Fx Patient Data Age: 46 Gender: F Height: 1.64 m Weight: 61.24 kg Allergies Allergy/AdvReac Type Severity Reaction Status Date / Time bupropion [From Wellbutrin] Allergy Severe Hives Verified 05/28/22 11:36 Penicillins Allergy Severe Hives Verified 05/28/22 11:36 Cephalosporins Allergy Intermediate Blister Verified 05/28/22 11:36 morphine AdvReac Intermediate vomitting Verified 05/28/22 11:36 Home Medications Medication Instructions Recorded Confirmed Type cholecalciferol (vitamin D3) 50 50 mcg PO DAILY 05/01/20 05/28/22 History mcg (2,000 unit) capsule magnesium oxide 400 mg PO DAILY 05/01/20 05/28/22 History vit B complex 100 combo no.2 100 1 tablet PO DAILY 05/01/20 05/28/22 History mg tablet,extended release (B-100 Complex ER) cetirizine 10 mg capsule (Zyrtec) 10 mg PO DAILY PRN Allergy Symptoms 05/27/22 05/28/22 History aspirin 325 mg tablet,delayed 325 mg PO DAILY 05/28/22 05/28/22 History release ibuprofen 400 mg tablet 400 mg PO TID 05/28/22 05/28/22 History ondansetron HCl 4 mg tablet 4 mg PO Q6H #10 tabs 05/28/22 05/28/22 Rx tapentadol 50 mg tablet (Nucynta) 50 mg PO Q6H PRN pain #30 tabs 05/28/22 05/28/22 Rx Patient hx anesthesia problems: none Family hx anesthesia problems: none Results Review: All pre-operative results and documents have been reviewed as part of the pre-operative evaluation. [facility] Past Medical History Medical History (Updated 05/28/22 @ 11:57 by Braulio Lutz MD) Abnormal stress echo cardiac cath negative Allergies Anxiety Atypical chest pain cardiac cath neg Carpal tunnel syndrome on both sides Closed trimalleolar fracture of left ankle Dyskinesia of esophagus Liver cyst Nasal polyps Nicotine dependence, unspecified, in remission Palpitations 2005: holter neg/ echo normal Surgical History Surgical History (Updated 05/27/22 @ 14:19 by Mckayla Angeles [facility]) History of cardiac cath 06.02.20: negative Conclusion:: 1. Right coronary dominant circulation with no angiographic evidence of coronary disease 2. angiographically small caliber vessels in this lady 3. normal left ventricular systolic function without wall motion abnormalities 4. successful Angio-Seal deployment at the end case with no evidence of hematoma History of D&C miscarriage x 2- 2002 & 2005 History of placement of ear tubes 1982 Hx of tubal ligation 2010 S/P appendectomy (~2003) Family History Family History (Updated 05/27/22 @ 14:17 by Mckayla Angeles CMA) Mother Hypertension Depression Father Family history of cardiovascular disease Family history of malignant neoplasm of skin Sibling Depression Other Family history of skin conditions Social History Social History (Updated 05/27/22 @ 14:16 by Mckayla Angeles [facility]) Smoking packs per day: 1 Smoking cigarettes per day: 20.0 Years smoked: 6 Smoking pack-years: 6.00 Smoking status: Former smoker Tobacco type: cigarettes Second hand tobacco smoke exposure: No Smoking end date: 07/14/01 Alcohol intake: current Drinks per week: 10 Substance use: never Substance use type: does not use Living arrangements: with family 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
[2022-05-30] VITALS (8 sets, daily range): BP systolic 115–137; BP diastolic 76–85; PULSE 75–115; RESP 12–16; TEMP 36.5–37.7; O2SAT 98–100
--- NOTE | ~2022-05-30 | XR_ITS ---
EXAMINATION: XR surgery orthopedic DATE: 05/30/2022 15:17 INDICATION: Trimalleolar left ankle fracture. TECHNIQUE: 5 intraoperative spot fluoroscopic images of the left ankle were obtained. I was not prese nt. Fluoroscopy exposure time was 12 seconds. COMPARISON: Left ankle radiographs 05/25/2022 FINDINGS: There is a transverse fracture of medial malleolus status post open reduction internal fixa tion with lag screw with washer. There is an oblique fracture of distal fibula status post open reduc tion internal fixation with plate and screws. There is a fracture of the posterior malleolus with liseth roximately 2 mm offset at the articular surface. Skin anisa are noted. IMPRESSION: 1. Trimalleolar ankle fracture status post open reduction internal fixation. Reviewed, dictated and finalized at location A. RGLASS INSULATION INSTALLER
[2022-05-30] MEDS: ACETAMINOPHEN 500 MG TABLET 1000 MG PO (13:06)
[2022-05-30] MEDS: LACTATED RINGERS 1,000 ML 30 ML IV CONT ×2 (13:25→15:26)
[2022-05-30] MEDS: KETOROLAC 15 MG/ML VIAL (*BKC) IV PUSH (13:30)
--- NOTE | 2022-05-30 13:30 | WPDHPUPDATE1 ---
History and Physical Update Update Date/Time: 05/30/22 13:30 History and Physical has been reviewed, including an updated exam of the patient. There are NO changes in the patient's condition. Risks, benefits, and alternatives have been discussed and questions answered. Patient agrees to proceed with procedure.
--- NOTE | 2022-05-30 13:38 | WPDANESPNB ---
Anes - Peripheral Nerve Block Date/Time: 05/30/22 13:38 I have discussed with the patient/family/POA the placement of a peripheral nerve block for post-operative pain management, including associated risks, benefits, complications, and side effects. Alternative methods of post-operative analgesia were detailed. Questions were solicited and answers provided to the satisfaction of the patient/family/POA. Time-Out: A pre-procedural Time-Out was completed immediately before starting the procedure and confirmed: Patient Identification, Site, Procedure, Patient Position and the Availability of Requisite Equipment. Clinical Indications: Acute post-operative pain management requested by the operative surgeon. Nerve Block Insertion Note Anes-nerve block: posterior fossa sciatic left and adductor canal left Patient position: supine (for adductor canal) and other (right lateral for popliteal) Skin prep: chlorhexidine Needle: 22 gauge, stimulating, insulated echogenic needle. Needle length: 80 mm Technique: nerve stimulation lost at (mA) (for popliteal lost at 0.2) and ultrasound Injectate: bupivacaine 0.5% with epi 5 mcg/ml (20 mL for popliteal, 10 mL for adductor canal (no epi)) Observations: tolerated well Complications: none Procedure start time:: 1346 Procedure end time:: 1352
[2022-05-30] MEDS: SCOPOLAMINE 1.5 MG PATCH TRANSDERM (13:50)
[2022-05-30] MEDS: CLINDAMYCIN 900 MG/D5W 50 ML 900 MG/50 ML PIGGYBACK 50 MG IVPB (13:57)
--- NOTE | 2022-05-30 15:41 | P.OP_ITS ---
Procedure Note - Detailed Date of Procedure 05/30/22 Pre-op Diagnosis Lt Trimalleolar Fx Post-op Diagnosis Same Procedure Performed ORIF left medial and lateral malleoli with fluoroscopic assistance Surgeon Braulio Lutz MD Airframe And Powerplant Mechanic Dara Tellez Anesthesia General and Regional Description of Procedure The patient was identified and proper site identified. In the preoperative holding area the anesthesia team performed a left lower leg block. She was then taken to the operating room and transferred to the OR table placing her supine taking care to pad her torso and extremities. After general anesthetic induction and intubation, the splint was removed from the left lower extremity. Left leg was then prepped and draped in usual sterile fashion. Extremity was exsanguinated tourniquet was inflated to 300 millimeters of mercury remaining up for approximately 52 minutes. A longitudinal incision was made over the distal fibula laterally. Subcutaneous tissue was sharply dissected full-thickness down to the fracture. Fracture was identified, cleared of debris and then reduced anatomically. It was secured with a 3.5 millimeter screw placed in a lag fashion. Next a three hole lateral hook plate from the Arthrex set was applied to the distal fibula under fluoroscopic visualization to ensure that the joint was not penetrated. This gave an anatomic reduction of the lateral malleolus. Wound was irrigated with Sterile saline. The skin was reapproximated with 3-0 V lock and anisa. Attention was turned to the medial side. A longitudinal incision was made over the medial malleolus. Subcutaneous tissue sharply dissected taking care to protect neurovascular structures. Fracture was identified and cleared of debris. The ankle was irrigated removing clotted hematoma the medial malleolar fragment was secured with K-wires provisionally and then with a 4.0 millimeter cannulated screw and washer. This was examined fluoroscopically and reduction was noted to be anatomic. Talus was well positioned in the mortise on all views. Medial wound was irrigated with sterile saline. The wound was closed with 3-0 Monocryl and anisa. Sterile dressing was applied. A well-padded stirrup ankle splint was applied with the ankle in a neutral position. Tourniquet was released. She tolerated the procedure well. She was awakened, extubated and taken to recovery area in stable condition. There were no known intraoperative complications. Estimated blood loss was negligible. She received perioperative antibiotics. Estimated Blood Loss 5 Tourniquet Time 53 Drains No Packing No Pathology None sent Complications No immediate complications Condition Stable Disposition PACU [facility] Billing Surgery - Charge Forward: Surgery Billing ([id number], [id number])
== END 2022-05-30 17:45 | disposition home or self-care (01) ==
PROVIDERS: PCP Family Medicine; Visit Provider Orthopaedic Surgery
PROC: (CPT 27814; principal; 2022-05-30 14:00)
DX: S82.852A Displaced trimalleolar fracture of left lower leg, initial encounter for closed fracture (principal); G89.18 Other acute postprocedural pain; W01.0XXA Fall on same level from slipping, tripping and stumbling without subsequent striking against object, initial encounter; Z87.891 Personal history of nicotine dependence; Z79.82 Long term (current) use of aspirin
CPT/HCPCS: 27814; 64447; 64445; 99199; A9270; C1713; C1769; J1100; J1885; J2250; J2405; J2704; J3010; J7120

== ENCOUNTER → 2023-01-02 07:19 | Outpatient (CLI) | payer BC, SELFPAY ==
--- NOTE | ~2023-01-02 | MM_ITS ---
EXAMINATION: MM screening nicholas BI w damaris HISTORY: Screening mammogram TECHNIQUE: Craniocaudal and mediolateral oblique 3-D tomosynthesis images were obtained and synthetic 2-D images were generated. CAD analysis was submitted and interpreted. COMPARISON: 10/11/2021 diagnostic bilateral mammogram and limited left breast ultrasound examination 10/10/2020 diagnostic bilateral mammogram and limited left breast ultrasound 04/12/2020 diagnostic left mammogram and limited left breast ultrasound 10/11/2019 diagnostic left mammogram and limited left breast ultrasound 09/24/2019 bilateral screening mammogram BREAST PARENCHYMAL COMPOSITION: The breasts are heterogeneously dense, which may obscure small masses . FINDINGS: Scattered bilateral benign calcifications. There is no evidence of suspicious mass, calcifi cation, or architectural distortion to suggest malignancy in either breast. There has been no suspici ous interval change. IMPRESSION: 1. No mammographic evidence of malignancy. 2. Recommend routine screening mammography in one year. BI-RADS Category 2: Benign finding(s). Reviewed, dictated and finalized at location A.
== END ==
PROVIDERS: PCP Family Medicine; Visit Provider Obstetrics & Gynecology Gynecology
DX: Z12.31 Encounter for screening mammogram for malignant neoplasm of breast (principal)
CPT/HCPCS: 77063; 77067

== ENCOUNTER 2023-07-17 01:14 | Day surgery (SDC) | payer BC, SELFPAY ==
[2023-06-23 09:27] VITALS: BMI 23.4
--- NOTE | 2023-07-15 09:56 | SUR.PREOP ---
Patient called regarding upcoming procedure. Reviewed preop instructions, appointment times, and procedure prep. Further questions answered.
--- NOTE | 2023-07-15 20:57 | PM.HPGS ---
History of Present Illness History of Present Illness Consent: Risks, benefits, and alternatives have been discussed and questions answered. Patient agrees to proceed with procedure. Chief complaint: neoplasm screening Narrative: Tanisha Ag is a 47 year old female who is referred for colon cancer screening. Review of Systems Review of Systems: All systems reviewed & are unremarkable except as noted in HPI and below PMFSH Past Medical History Medical History Abnormal stress echo cardiac cath negative Allergies Anxiety Atypical chest pain cardiac cath neg Carpal tunnel syndrome on both sides Dysesthesia of face Dyskinesia of esophagus Liver cyst Maxillary sinus cyst Maxillary sinusitis Nasal polyps Nicotine dependence, unspecified, in remission Palpitations 2005: holter neg/ echo normal Weakness of right foot Surgical History Surgical History Closed trimalleolar fracture of left ankle ORIF left ankle May 30, 2022 History of cardiac cath 06.02.20: negative Conclusion:: 1. Right coronary dominant circulation with no angiographic evidence of coronary disease 2. angiographically small caliber vessels in this lady 3. normal left ventricular systolic function without wall motion abnormalities 4. successful Angio-Seal deployment at the end case with no evidence of hematoma History of D&C miscarriage x 2- 2002 & 2006 History of placement of ear tubes 1983 Hx of tubal ligation 2011 S/P appendectomy (~2003) Family History Family History Mother Hypertension Depression Father Family history of cardiovascular disease Family history of malignant neoplasm of skin Sibling Depression Other Family history of skin conditions Social History Social History Smoking packs per day: 1 Smoking cigarettes per day: 20.0 Years smoked: 8 Smoking pack-years: 8.00 Smoking status: Former smoker Tobacco type: cigarettes Second hand tobacco smoke exposure: No Smoking end date: 07/14/01 Alcohol intake: never Drinks per week: 10 Substance use: never Substance use type: does not use Lack of Transportation: No Lack of Food: Never True Current Housing: I Have Housing Concerned About Future Housing: No Difficulty Paying Gas/Electric Bills: No Difficulty Paying for Meds: No Currently Unemployed: No Education: Bachelor's Degree Difficulty w/ Childcare or Family Care: No Living arrangements: with family Occupation/Education: occupation 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 Gender identity (if verbalized by the patient): Female Sexual Orientation (if Verbalized by the Patient): Straight or Heterosexual Spiritual care concerns: No Meds Home Medications and Allergies Home Medications Medication Instructions Recorded Confirmed Type cholecalciferol (vitamin D3) 50 50 mcg PO DAILY 05/01/20 06/23/23 History mcg (2,000 unit) capsule magnesium oxide 250 mg PO DAILY 05/01/20 06/23/23 History vit B complex 100 combo no.2 100 1 tablet PO DAILY 05/01/20 06/23/23 History mg tablet,extended release (B-100 Complex ER) Allergies Allergy/AdvReac Type Severity Reaction Status Date / Time bupropion [From Wellbutrin] Allergy Severe Hives Verified 07/17/23 08:24 Penicillins Allergy Severe Hives Verified 07/17/23 08:24 Cephalosporins Allergy Intermediate Blister Verified 07/17/23 08:24 morphine AdvReac Intermediate vomitting Verified 07/17/23 08:24 dimenhydrinate AdvReac possible Verified 07/17/23 08:24 [From Dramamine] cause of palpitations Exam Const: General: alert Orientation/consciousness: patient oriented x3 Resp: Auscultation: clear to auscultation bilatera
[2023-07-17 08:25] VITALS: BP 111/86; PULSE 122; RESP 18; TEMP 36.8; O2SAT 100
[2023-07-17] MEDS: LACTATED RINGERS 1,000 ML 150 ML IV CONT (08:37)
--- NOTE | 2023-07-17 08:55 | SUR.PREOP ---
0825: PT'S VITAL SIGNS B/P 111/86, HR 122. PT STATES SHE DOES HAVE TIMES THAT HER HEART RATE IS HIGH BUT SHE CANNOT FEEL WHEN IT IS HAPPENING. PT STATES SHE IS NOT NERVOUS OR ANXIOUS. DR CUI MADE AWARE AND ALSO MADE AWARE OF ALL PT'S CARDIAC HISTORY. PT ALSO PLACED ON MONITOR AND HEART RHYTHM IS REGULAR WITH HR BETWEEN [address] CUI SEEING PT, NO NEW ORDERS RECEIVED. ZULEMA SHAFER TO BE NOTIFIED WELL.
--- NOTE | 2023-07-17 09:47 | WPDANESEPPF ---
Anes - Initial Pre Proc Eval Procedure: Operation Date: 07/17/23 09:30 Proposed Procedures p Screening Colonoscopy - Emilio Joyce MD Date/Time: 07/17/23 09:47 Surgeon: Emilio Joyce MD Pre Op Diagnosis: neoplasm screening Patient Data Age: 47 Gender: F Height: 1.63 m Weight: 60.4 kg Last Vital Signs Temp 98.3 F 07/17/23 08:25 Pulse 122 H 07/17/23 08:25 Resp 18 07/17/23 08:25 BP 111/86 07/17/23 08:25 Pulse Ox 100 07/17/23 08:25 O2 Del Method Room Air 07/17/23 08:25 Allergies Allergy/AdvReac Type Severity Reaction Status Date / Time bupropion [From Wellbutrin] Allergy Severe Hives Verified 07/17/23 08:24 Penicillins Allergy Severe Hives Verified 07/17/23 08:24 Cephalosporins Allergy Intermediate Blister Verified 07/17/23 08:24 morphine AdvReac Intermediate vomitting Verified 07/17/23 08:24 dimenhydrinate AdvReac possible Verified 07/17/23 08:24 [From Dramamine] cause of palpitations Home Medications Medication Instructions Recorded Confirmed Type cholecalciferol (vitamin D3) 50 50 mcg PO DAILY 05/01/20 06/23/23 History mcg (2,000 unit) capsule magnesium oxide 250 mg PO DAILY 05/01/20 06/23/23 History vit B complex 100 combo no.2 100 1 tablet PO DAILY 05/01/20 06/23/23 History mg tablet,extended release (B-100 Complex ER) Patient hx anesthesia problems: none Family hx anesthesia problems: none Results Review: All pre-operative results and documents have been reviewed as part of the pre-operative evaluation. [facility] Past Medical History Medical History Abnormal stress echo cardiac cath negative Allergies Anxiety Atypical chest pain cardiac cath neg Carpal tunnel syndrome on both sides Dysesthesia of face Dyskinesia of esophagus Liver cyst Maxillary sinus cyst Maxillary sinusitis Nasal polyps Nicotine dependence, unspecified, in remission Palpitations 2005: holter neg/ echo normal Weakness of right foot Surgical History Surgical History Closed trimalleolar fracture of left ankle ORIF left ankle May 30, 2022 History of cardiac cath 06.02.20: negative Conclusion:: 1. Right coronary dominant circulation with no angiographic evidence of coronary disease 2. angiographically small caliber vessels in this lady 3. normal left ventricular systolic function without wall motion abnormalities 4. successful Angio-Seal deployment at the end case with no evidence of hematoma History of D&C miscarriage x 2- 2002 & 2006 History of placement of ear tubes 1983 Hx of tubal ligation 2011 S/P appendectomy (~2003) Family History Family History Mother Hypertension Depression Father Family history of cardiovascular disease Family history of malignant neoplasm of skin Sibling Depression Other Family history of skin conditions Social History Social History Smoking packs per day: 1 Smoking cigarettes per day: 20.0 Years smoked: 8 Smoking pack-years: 8.00 Smoking status: Former smoker Tobacco type: cigarettes Second hand tobacco smoke exposure: No Smoking end date: 07/14/01 Alcohol intake: never Drinks per week: 10 Substance use: never Substance use type: does not use Lack of Transportation: No Lack of Food: Never True Current Housing: I Have Housing Concerned About Future Housing: No Difficulty Paying Gas/Electric Bills: No Difficulty Paying for Meds: No Currently Unemployed: No Education: Bachelor's Degree Difficulty w/ Childcare or Family Care: No Living arrangements: with family Occupation/Education: occupation 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
[2023-07-17 09:51] VITALS: BP 112/62; PULSE 85; RESP 19; O2SAT 100
[2023-07-17 10:01] VITALS: BP 102/67; PULSE 90; RESP 20; O2SAT 100
[2023-07-17 10:11] VITALS: BP 106/74; PULSE 88; RESP 20; O2SAT 100
== END 2023-07-17 10:18 | disposition home or self-care (01) ==
PROVIDERS: PCP Family Medicine; Visit Provider Internal Medicine Gastroenterology
PROC: 0DJD8ZZ Inspection of Lower Intestinal Tract, Via Natural or Artificial Opening Endoscopic (ICD-10-PCS; CPT 45378; principal; 2023-07-17 09:30)
DX: Z12.11 Encounter for screening for malignant neoplasm of colon (principal); K64.8 Other hemorrhoids; F41.9 Anxiety disorder, unspecified; Z98.890 Other specified postprocedural states; Z87.891 Personal history of nicotine dependence; Z82.49 Family history of ischemic heart disease and other diseases of the circulatory system; Z84.0 Family history of diseases of the skin and subcutaneous tissue
CPT/HCPCS: 45378; J2704; J7120

== ENCOUNTER 2023-12-09 11:16 | Outpatient (CLI) | payer BC, SELFPAY ==
--- NOTE | ~2023-12-09 | XR_ITS ---
Right Shoulder Technique: AP and scapular Y views were obtained. Clinical History: Pain Findings: No fracture or dislocation is seen. Osseous alignment is anatomic. The glenohumeral and acr omioclavicular joint spaces are preserved. Soft tissues are unremarkable. Impression: Unremarkable right shoulder radiographs. Reviewed, dictated and finalized at [facility]. Impression: Unremarkable right shoulder radiographs.
== END 2023-12-09 11:17 ==
LOC: GOSHIMG 11:17
PROVIDERS: PCP Family Medicine; Visit Provider Student in an Organized Health Care Education/Training Program
DX: M25.511 Pain in right shoulder (principal)
CPT/HCPCS: 73030

== ENCOUNTER 2024-01-26 15:23 | Outpatient (CLI) | payer BC, SELFPAY ==
--- NOTE | ~2024-01-26 | MR_ITS ---
MRI of the right shoulder Technique: Axial proton-density fat-sat images, coronal proton density fat-sat and T2 fat-sat images, and sagittal T1-weighted and T2 fat-sat images were acquired. Clinical History: Adhesive capsulitis Findings: No significant degenerative change of the AC joint. Coracoclavicular, coracoacromial, and c oracohumeral ligaments appear intact. Supraspinatus and infraspinatus tendons are intact, without partial or full-thickness tear. Subscapul nelly tendon is intact. Tendon of long head of the biceps is intact. No labral tear identified. There is thickening and increased signal of the inferior glenohumeral ligament. There is no significa nt glenohumeral joint effusion or degenerative change. No fluid distention of the subacromial/subdelt oid bursa. No muscle atrophy or edema. Impression: Thickening and increased signal of the inferior glenohumeral ligament is consistent with adhesive cap sulitis. Reviewed, dictated and finalized at location . Impression: Thickening and increased signal of the inferior glenohumeral ligament is consis tent with adhesive capsulitis.
== END 2024-01-26 15:24 ==
LOC: GOSHIMG 15:24
PROVIDERS: PCP Family Medicine; Visit Provider Family Medicine
DX: M75.01 Adhesive capsulitis of right shoulder (principal)
CPT/HCPCS: 73221

== ENCOUNTER 2024-05-13 07:31 | Outpatient (CLI) | payer BC, SELFPAY ==
--- NOTE | ~2024-05-13 | MM_ITS ---
EXAMINATION: MM screening nicholas BI w damaris HISTORY: Screening mammogram TECHNIQUE: Craniocaudal and mediolateral oblique 3-D tomosynthesis images were obtained and synthetic 2-D images were generated. CAD analysis was submitted and interpreted. COMPARISON: 01/02/2023, 10/11/2021, 10/10/2020, 04/12/2020 BREAST PARENCHYMAL COMPOSITION:Dense: The breasts are heterogeneously dense, which may obscure small masses. FINDINGS: Probable developing low-density mass at the upper, inner right breast. Stable parenchymal a ppearance of the left breast. Stable bilateral benign calcifications. IMPRESSION: Probable developing low-density right breast mass, as detailed above. Spot compression views and ult rasound are recommended for further evaluation. BI-RADS Category 0: Incomplete: Needs additional imaging evaluation. Reviewed, dictated and finalized at [facility]. IMPRESSION: Probable developing low-density right breast mass, as detailed above. Spot com pression views and ultrasound are recommended for further evaluation. BI-RADS Category 0: Incomplete: Needs additional imaging evaluation.
== END 2024-05-13 07:32 | disposition home or self-care (01) ==
LOC: MICIMG 07:31
PROVIDERS: PCP Family Medicine; Visit Provider Obstetrics & Gynecology Gynecology
DX: Z12.31 Encounter for screening mammogram for malignant neoplasm of breast (principal); R92.8 Other abnormal and inconclusive findings on diagnostic imaging of breast
CPT/HCPCS: 77063; 77067

== ENCOUNTER 2024-06-04 07:52 | Outpatient (CLI) | payer BC, SELFPAY ==
--- NOTE | ~2024-06-04 | MMUS_ITS ---
EXAMINATION: MM diagnostic nicholas RT w damaris, US breast RT limited HISTORY: Right breast mass TECHNIQUE: Additional 3-D tomosynthesis images of the right breast were performed and synthetic 2-D i mages were generated. CAD analysis was submitted and interpreted. High resolution limited right breas t ultrasound was performed. COMPARISON: 05/13/2024, 01/02/2023, 10/11/2021 BREAST PARENCHYMAL COMPOSITION:Dense: The breasts are heterogeneously dense, which may obscure small masses. FINDINGS: MAMMOGRAPHIC FINDINGS: Spot compression views demonstrate a persistent 8 mm mass at the inner, slightly upper right breast, middle depth. ULTRASOUND: At the 1:00 position right breast, 2 cm from the nipple, there is a 4 mm hypoechoic circumscribed mas s, without posterior shadowing. There is an immediately adjacent additional 3 mm hypoechoic circumscr ibed possible mass. At the 2:00 position right breast, 3 cm from nipple, there is a 5 x 5 x 6 mm cyst with minimally irregular borders. There is an additional 3 mm cyst also at the 3:00 position right b reast, 2 cm from the nipple. There is an additional 6 mm cyst in this location as well. There is an a dditional 6 mm cyst at the right subareolar region. There is an additional 7 mm circumscribed hypoech oic probable solid mass at the right subareolar region, without posterior shadowing. IMPRESSION: Multiple subcentimeter probable benign lesions and cysts in the right breast, as detailed above. Six -month follow-up ultrasound recommended to reassess. BI-RADS category 3, probably benign findings. Reviewed, dictated and finalized at location M. WEIGHER HELPER IMPRESSION: Multiple subcentimeter probable benign lesions and cysts in the right breast, as detailed above. Six-month follow-up ultrasound recommended to reassess. BI-RADS category 3, probably benign findings.
== END 2024-06-04 07:53 | disposition home or self-care (01) ==
LOC: MICIMG 07:52
PROVIDERS: PCP Obstetrics & Gynecology Gynecology; Visit Provider Family Medicine
DX: R92.8 Other abnormal and inconclusive findings on diagnostic imaging of breast (principal)
CPT/HCPCS: 76642; 77061; 77065; G0279

== ENCOUNTER 2024-09-30 10:17 | Outpatient (CLI) | payer BC, SELFPAY ==
--- NOTE | ~2024-09-30 | CT_ITS ---
EXAMINATION: CT abdomen pelvis wo con DATE: 09/30/2024 10:54 INDICATION: Abdominal pain TECHNIQUE: Computed tomography (CT) of the abdomen and pelvis was performed without intravenous contr ast. Automated exposure control and iterative reconstruction technique were employed. The dose-length product was 394.98 mGy-cm. COMPARISON: 04/19/2016 FINDINGS: Lung bases are clear. Heart size is normal. No pericardial or pleural effusion. Interval increase in size of a few scattered well-defined low-attenuation hepatic cysts measuring up to 1.5 cm. Gallbladde r, spleen, pancreas, bilateral adrenal glands and kidneys are normal. Bladder, anteverted uterus are normal. Bilateral adnexal cysts the larger on the right measuring 4.7 cm and the smaller on the left measuring 1.8 cm. Small likely tubal ligation rings along the bilateral proximal ligaments. Bowels ar e unremarkable. The appendix is not visualized. No pericecal inflammatory change to suggest acute liseth endicitis. No free intraperitoneal gas or fluid. No pathologically enlarged abdominal or pelvic lymph adenopathy. Mild thoracolumbar dextrocurvature. Small bone island at the left superior pubic ramus. IMPRESSION: 1. Bilateral ovarian cysts measuring 1.8 cm on the left and 4.7 cm on the right. No other acute intra -abdominal/pelvic process. Reviewed, dictated and finalized at location A. IMPRESSION: 1. Bilateral ovarian cysts measuring 1.8 cm on the left and 4.7 cm on the right . No other acute intra-abdominal/pelvic process.
== END 2024-09-30 10:18 | disposition home or self-care (01) ==
PROVIDERS: PCP Family Medicine; Visit Provider Family Medicine
DX: R10.9 Unspecified abdominal pain (principal); R31.9 Hematuria, unspecified; N83.201 Unspecified ovarian cyst, right side; N83.202 Unspecified ovarian cyst, left side
CPT/HCPCS: 74176

== ENCOUNTER 2024-11-11 12:44 | Outpatient (CLI) | payer BC, SELFPAY ==
--- NOTE | ~2024-11-11 | US_ITS ---
Pelvic ultrasound. Clinical History: Right and left ovarian cysts Technique: Realtime transabdominal and transvaginal scanning of the pelvis was performed. Color flow Doppler and Doppler spectral analysis were performed. Findings: The uterus is anteverted, and measures 8.4 x 4.4 x 5.0 cm. The endometrial stripe has a th ickness of 4 mm. No focal mass is identified. The right ovary measures 3.2 x 2.9 x 2.5 cm. Follicular cyst measures 2.5 cm in diameter. Additional smaller cyst measures 1.5 cm in diameter. The left ovary measures 2.3 x 2.2 x 2.1 cm. Follicular cyst measures 1.9 cm in diameter. There is no evidence of free fluid in the cul de sac. Impression: Small bilateral follicular ovarian cysts, of doubtful clinical significance. Reviewed, dictated and finalized at [facility]. Impression: Small bilateral follicular ovarian cysts, of doubtful clinical significance.
== END 2024-11-11 12:45 | disposition home or self-care (01) ==
LOC: GOSHIMG 12:45
PROVIDERS: PCP Family Medicine; Visit Provider Obstetrics & Gynecology Gynecology
DX: N83.202 Unspecified ovarian cyst, left side (principal); N83.201 Unspecified ovarian cyst, right side
CPT/HCPCS: 76830; 76856

== ENCOUNTER 2024-12-02 07:48 | Outpatient (CLI) | payer BC, SELFPAY ==
--- NOTE | ~2024-12-02 | US_ITS ---
US breast RT limited 12/02/2024 08:13 Indication: Diffuse cystic mass. Procedure: Limited right breast ultrasound Comparison: 06/04/2024 Findings: At 2:00, 3 cm from the nipple there is an oval hypoechoic 8mm mass which is compatible with a complicated cyst. This may be minimally increased in size compared with prior examination. Lateral margins are slightly irregular. No internal vascularity or posterior features. At 3:00, 2 cm from th e nipple, there is a 5 mm cyst. There is an adjacent oval hypoechoic 4 mm mass with low level interna l echoes, likely complicated cysts. These are slightly smaller than on prior study. Near the nipple t here are mildly enlarged ducts. No suspicious masses. Impression: 1: Probable benign right breast masses. BI-RADS CATEGORY 3-PROBABLY BENIGN FINDING RECOMMENDATION: Six-month follow-up diagnostic bilateral mammogram and Limited right breast ultrasoun d recommended. Reviewed, dictated and finalized at location [] Impression: 1: Probable benign right breast masses. BI-RADS CATEGORY 3-PROBABLY BENIGN FINDING RECOMMENDATION: Six-month follow-up diagnostic bilateral mammogram and Limited right breast ultrasound recommended.
== END 2024-12-02 07:49 | disposition home or self-care (01) ==
LOC: MICIMG 07:48
PROVIDERS: PCP Family Medicine; Visit Provider Family Medicine
DX: N60.11 Diffuse cystic mastopathy of right breast (principal)
CPT/HCPCS: 76642

== ENCOUNTER 2025-06-07 07:41 | Outpatient (CLI) | payer BC, SELFPAY ==
--- NOTE | ~2025-06-07 | MMUS_ITS ---
EXAMINATION: MM diagnostic nicholas BI w damaris, US breast RT limited HISTORY: Follow-up TECHNIQUE: Craniocaudal and mediolateral oblique 3-D tomosynthesis images were obtained and synthetic 2-D images were generated. CAD analysis was submitted and interpreted. Grayscale sonography over the area(s) of interest with color Doppler if there is a finding. COMPARISON: Studies dating back to May 13, 2024 BREAST PARENCHYMAL COMPOSITION: The breast tissue is heterogeneously dense, which lowers the sensitivity of mammography. MAMMOGRAM FINDINGS: Small, Circumscribed masses are unchanged. No suspicious masses are seen. There are no suspicious calcifications. No unexplained architectural distortion is seen. There are no skin or nipple abnormalities identified. There is no adenopathy seen on the images submitted. ULTRASOUND FINDINGS: Sonography through the 2:00 position again demonstrates a cyst with significantly fewer low level echoes. It has decreased in size, form maximum dimension of 8 mm to a maximum dimension of 5 mm. It appears more anechoic on the current study as well. This is considered benign. One 2-3 mm circumscribed, hypoechoic mass persists at 3:00, unchanged. This is considered benign. There is mild ductal ectasia in the retroareolar region. IMPRESSION: No mammographic evidence to suggest malignancy is seen. The patient may return to screening mammography as per ACR guidelines. BI-RADS Code: 2 - Benign. Reviewed, dictated and finalized at location B. RANCE VERIFY REP IMPRESSION: No mammographic evidence to suggest malignancy is seen. The patient may return to screening mammography as per ACR guidelines. BI-RADS Code: 2 - Benign.
== END 2025-06-07 07:42 | disposition home or self-care (01) ==
LOC: MICIMG 07:41
PROVIDERS: PCP Family Medicine; Visit Provider Family Medicine
DX: R92.8 Other abnormal and inconclusive findings on diagnostic imaging of breast (principal)
CPT/HCPCS: 76642; 77062; 77066; G0279

== ENCOUNTER 2025-07-05 14:53 | Outpatient (CLI) | payer BC, SELFPAY ==
--- NOTE | ~2025-07-05 | US_ITS ---
US thyroid INDICATION: Nontoxic goiter TECHNIQUE: Real-time sonographic images of the thyroid gland were obtained. COMPARISON: No prior studies for comparison. FINDINGS: The right thyroid lobe measures 5.9 x 2 x 2 cm. The left thyroid lobe measures 5.1 x 2.2 x 2.1 cm. Thyroid echotexture is somewhat heterogeneous. Multiple small cysts identified in both thyroid lobes. In the left lobe there is an oval hypoechoic mass which is mixed solid and cystic, wider than tall, smoothly marginated without echogenic foci measuring 9 mm, TR3. No discrete mass identified which meet sonographic criteria for biopsy. Normal vascular flow is present. IMPRESSION: 1. No suspicious masses meet sonographic criteria in either thyroid lobe for biopsy. There are multiple benign-appearing cysts and mixed solid and cystic lesions. Reviewed, dictated and finalized at location O. [employer] STUDIES TEACHER IMPRESSION: 1. No suspicious masses meet sonographic criteria in either thyroid lobe for b iopsy. There are multiple benign-appearing cysts and mixed solid and cystic les ions.
== END 2025-07-05 14:54 | disposition home or self-care (01) ==
LOC: GOSHIMG 14:53
PROVIDERS: PCP Family Medicine; Visit Provider Family Medicine
DX: E04.2 Nontoxic multinodular goiter (principal); D34 Benign neoplasm of thyroid gland
CPT/HCPCS: 76536